=== PATIENT | male | born 1950 | race Hispanic/Latino ===

== ENCOUNTER → 2024-06-19 | Outpatient (REF) | payer MEDICARE ==
[~2024-06-19] MED LIST: CIPRO500 MG PO; FINASTERIDE5 MG PO; HYDROCHLOROTH12.5 M1 PO; IBUPROFEN400 MG PO; LOSARTAN POTAS100 MG PO; LOVASTATIN40 MG PO; RAPAFLO8 MG PO; TYLENOL # 31 EA
== END ==
LOC: CT 12:00
PROVIDERS: ATTEND Urology
DX: N20.0 Calculus of kidney (principal)
CPT/HCPCS: 74176